=== PATIENT | female | born 1990 | race Caucasian/White ===

== ENCOUNTER 2020-06-04 20:09 | Emergency (ER) | payer SELFPAY | END 2020-06-04 21:05 | disposition left against medical advice (07) | LOC: ED 20:09 | DX: R10.9 Unspecified abdominal pain (principal); Z53.21 Procedure and treatment not carried out due to patient leaving prior to being seen by health care provider ==

== ENCOUNTER 2020-08-20 01:56 | Emergency (ER) | payer SELFPAY ==
[2020-08-20 05:36] VITALS: BP 121/69
[2020-08-20 05:44] LABS: Hematocrit 39.3 % (30.3-42.9); Mean Corpuscular HGB Conc 33 % (30-34); Mean Corpuscular Volume 83 fl (79-97); Platelet Count 185 K/mm3 (140-440); Red Blood Count 4.72 M/mm3 (3.65-5.03); Red Cell Distribution Width 14.7 % (13.2-15.2)
[2020-08-20 05:51] LABS: Bilirubin,Urine NEG (Negative); Blood,Urine SM (Negative); Color,Urine Yellow (Yellow); Mucus,Urine FEW /HPF; Protein,Urine <15 mg/dL mg/dL (Negative); Urobilinogen,Urine < 2.0 mg/dL (<2.0)
[2020-08-20 06:03] LABS: Alanine Aminotransferase 16 units/L (7-56); Albumin 4.2 g/dL (3.9-5); Blood Urea Nitrogen 5 mg/dL (7-17); Calcium 9.2 mg/dL (8.4-10.2); Hemolysis Index 1
[2020-08-20] MEDS ORDERED: SODIUM CHLORIDE 0.9% 1000 ML 1,000 ML IV ONE (06:06)
[2020-08-20] MEDS ORDERED: FLEET ENEMA PR ONE (06:06)
--- NOTE | 2020-08-20 06:09 | Emergency Department Report ---
HPI - General Chief Complaint: Abdominal Pain Time Seen by Provider: 08/20/20 05:54 - HPI HPI: 30-year-old G2, P1 female at 16 weeks gestation based on first trimester ultrasound presents complaining of 2 weeks of constipation. The patient states that for the past 2 weeks she has been unable to have a bowel movement. She feels as if she needs to go but every time she tries to go she sits on the toilet and strains without successful bowel movement. She has tried drinking prune juice without relief of her symptoms. She saw her MEDICARE INSURANCE SPECIALIST this past Danae rsday, 4 days ago and was supposed to be prescribed laxatives but it was never sent to the pharmacy. She reports that she has some rectal pain from straining but otherwise denies abdominal pain, nausea/vomiting, or any other symptoms. She denies fever/chills, headache, vision change, chest pain, shortness of breath, cough, dysuria, hematuria, vaginal bleeding, melena, hematochezia, or any other complaints. ED Past Medical Hx - Past Medical History Previous Medical History?: No - Surgical History Past Surgical History?: No - Medications Home Medications: Home Medications Medication Instructions Recorded Confirmed Last Taken Type Docusate Sodium [Colace] 100 mg PO BID PRN #14 capsule 08/20/20 Unknown Rx polyethylene glycoL 3350 [Miralax 17 gm PO QDAY 7 Days #7 packet 08/20/20 Unknown Rx 3350] ED Review of Systems ROS: Stated complaint: CONSTIPATION Other details as noted in HPI Constitutional: denies: chills, fever Eyes: denies: eye pain, vision change ENT: denies: throat pain, congestion Respiratory: denies: cough, shortness of breath Cardiovascular: denies: chest pain, palpitations Gastrointestinal: constipation. denies: abdominal pain, nausea, vomiting, diarrhea, melena, hematochezia Genitourinary: other (no vaginal bleeding). denies: dysuria, frequency, hematuria Musculoskeletal: denies: back pain, myalgia Skin: denies: rash Neurological: denies: headache, weakness, numbness Physical Exam - Physical Exam Vital Signs: Vital Signs 08/20/20 08/20/20 02:34 05:34 Temperature 98.1 F Pulse Rate 114 H 89 Respiratory 18 16 Rate Blood Pressure 111/80 Blood Pressure 121/69 [Left] O2 Sat by Pulse 99 100 Oximetry Physical Exam: GENERAL: Well developed and well nourished. No acute distress HEENT: Normocephalic. No obvious signs of trauma. Dry mucous membranes. EYES: Extraocular movements are intact. Pupils are equal round and reactive to light bilaterally NECK: Supple. Trachea is midline. LUNGS: Nonlabored breathing. Equal chest rise bilaterally. Clear to auscultation bilaterally. HEART/CARDIOVASCULAR: Regular rate and rhythm. No murmurs or rubs. VASCULAR: Cap refill < 2 seconds ABDOMEN: Abdomen is soft and nondistended. There is no significant tenderness, guarding or rebound. SKIN: Skin is warm and dry NEURO: Patient is awake, alert, and oriented. resourcing consultant II-XII grossly intact. No focal deficits. Normal motor and sensory exam throughout. Normal speech. MUSCULOSKELETAL: No obvious deformities. No significant tenderness. BACK/SPINE: No costovertebral angle tenderness. ED Course Vital Signs 08/20/20 08/20/20 02:34 05:34 Temperature 98.1 F Pulse Rate 114 H 89 Respiratory 18 16 Rate Blood Pressure 111/80 Blood Pressure 121/69 [Left] O2 Sat by Pulse 99 100 Oximetry ED Medical Decision Making - Lab Data Result diagrams: 08/20/20 05:28 08/20/20 05:28 Labs 08/20/20 08/20/20 08/20/20 05:28 05:28 05:28 WBC 13.2 H RBC 4.72 Hgb 13.0 Hct 39.3 MCV 83 MCH 28 MCHC 33 RDW 14.7 Plt Count 185 Sodium 135 L Potassium 3.8 Chloride 99.4 Carbon Dioxide 23 Anion Gap 16 BUN 5 L Creatinine 0.6 Estimated GFR > 60 BUN/Creatinine Ratio 8 Glucose 88 Calcium 9.2 Total Bilirubin 0.30 Direct Bilirubin < 0.2 Indirect Bilirubin 0.1 AST 14 ALT 16 Alkaline Phosphatase 59 Total Protein 7.1 Albumin 4.2 Albumin/Globulin Ratio 1.4 HCG, Quant 02493 H Urine Color Urine Turbidity Urine pH Ur Specific [place] Urine Protein Urine Glucose (UA) Urine Ketones Urine Blood Urine Nitrite Urine Bilirubin Urine Urobilinogen Ur Leukocyte Esterase Urine WBC (Auto) Urine RBC (Auto) U Epithel Cells (Auto) Urine Mucus 08/20/20 05:34 WBC RBC Hgb Hct MCV MCH MCHC RDW Plt Count Sodium Potassium Chloride Carbon Dioxide Anion Gap BUN Creatinine Estimated GFR BUN/Creatinine Ratio Glucose Calcium Total Bilirubin Direct Bilirubin Indirect Bilirubin AST ALT Alkaline Phosphatase Total Protein Albumin Albumin/Globulin Ratio HCG, Quant Urine Color Yellow Urine Turbidity Slightly-cloudy Urine pH 5.0 Ur Specific [place] 1.016 Urine Protein <15 mg/dl Urine Glucose (UA) Neg Urine Ketones 20 Urine Blood Sm Urine Nitrite Neg Urine Bilirubin Neg Urine Urobilinogen < 2.0 Ur Leukocyte Esterase Tr Urine WBC (Auto) 3.0 Urine RBC (Auto) 2.0 U Epithel Cells (Auto) 9.0 Urine Mucus Few - Radiology Data ULTRASOUND OBSTETRIC Indication: abd pain in preg Findings: There is a single intrauterine . BPD = 3.1 cm = 15 weeks, 5 day(s). Head circumference = 11.1 cm = 15 weeks, 3 day(s). Abdominal circumference = 10.1 cm = 16 weeks, 1 day(s). Femur length = 2.0 cm = 16 weeks, 0 day(s). Overall estimated sonographic age = 15 weeks, 6 day(s). heart rate is 140 beats per minute. Estimated weight is 140 grams position is cephalic. Cervix appears closed. movement is present. Placenta is left lateral and grade 0 . A small hypodensity is identified within the placenta which may represent a small placental george. Amniotic fluid volume appears normal. Maternal adnexa appear unremarkable aside from a 3.2 cm minimally complex left ovarian cyst. Impression: 1. Single living intrauterine with estimated sonographic age of 15 weeks, 6 day(s). 2. Small hypodensity within the placenta may repre sent a small placental george. Signer Name: Franki Desai MD Signed: 08/20/2020 5:46 AM Workstation Name: [id number] - Medical Decision Making 30-year-old female, G2, P1 at 16 weeks gestation based on first trimester ultrasound presents complaining of 2 weeks of constipation. Patient has been drinking prune juice without relief of her symptoms, but has not tried any other medications. Saw her OB 4 days ago and was supposed to be prescribed laxatives but prescription was never sent to the pharmacy. On initial assessment, the patient is in no acute distress. She is afebrile and with normal vital signs with the exception of mildly elevated heart rate in the 110s upon arrival. While I was in the room the patient's heart rate was in the 80s to 90s. On physical exam, she has dry mucous membranes. Abdomen is soft and nontender. There is no CVA tenderness. We will send a full set of labs, obtain an OB ultrasound, and we will plan to administer 1 L of IV fluids as well as an enema to facilitate bowel movement. Labs have resulted and reveal mild leukocytosis of 13.2. There is no significant anemia. There is no significant electrolyte abnormality and kidney function is normal. hCG quant is 31,000. Urinalysis is within normal limits. OB ultrasound is pending. ultrasound reveals normal 15-week 6-day intrauterine with heart rate of 140. Unremarkable other than 3.2 cm minimally complex left ovarian cyst. Repeat assessment at 8:10 AM, the patient is resting comfortably in the bed. She reports that she has had a bowel movement and does feel better but feels as if she has to go further. We discussed the results of the patient's labs and ultrasound. We will plan to discharge the patient home with prescription for Colace 100mg BID prn and Miralax 1 capful daily. The patient will follow up with her OBGYN in 2-3 days. Upon discharge, the patient's heart rate was in the 80s and the remainder of her vital signs were within normal limits. Critical care attestation.: If time is entered above; I have spent that time in minutes in the direct care of this critically ill patient, excluding procedure time. ED Disposition Clinical Impression: Constipation during , Left ovarian cyst Disposition: DC- TO HOME OR SELFCARE Is pt being admited?: No Condition: Stable Instructions: Care, Constipation, Adult, Abdominal Pain (ED) Additional Instructions: Please follow-up with your MEDICARE INSURANCE SPECIALIST in 2 to 3 days. Your ultrasound shows that you do have a 3.2 cm left ovarian cyst. Please follow-up with your MEDICARE INSURANCE SPECIALIST. Prescriptions: Docusate Sodium [Colace] 100 mg PO BID PRN #14 capsule PRN Reason: Constipation polyethylene glycoL 3350 [Miralax 3350] 17 gm PO QDAY 7 Days #7 packet Referrals: PRIMARY CARE, [Primary Care Provider] - 3-5 Days
[2020-08-20 06:22] LABS: BUN/Creatinine Ratio 8; Bilirubin,Direct < 0.2 mg/dL (0-0.2)
--- NOTE | 2020-08-20 06:50 | Ultrasound Report ---
ULTRASOUND OBSTETRIC Indication: abd pain in preg Findings: There is a single intrauterine . BPD = 3.1 cm = 15 weeks, 5 day(s). Head circumference = 11.1 cm = 15 weeks, 3 day(s). Abdominal circumference = 10.1 cm = 16 weeks, 1 day(s). Femur length = 2.0 cm = 16 weeks, 0 day(s). Overall estimated sonographic age = 15 weeks, 6 day(s). heart rate is 140 beats per minute. Estimated weight is 140 grams position is cephalic. Cervix appears closed. movement is present. Placenta is left lateral and grade 0 . A small hypodensity is identified within the placenta which m ay represent a small placental george. Amniotic fluid volume appears normal. Maternal adnexa appear unremarkable aside from a 3.2 cm minimally complex left ovarian cyst. Impression: 1. Single living intrauterine with estimated sonographic age of 15 weeks, 6 day(s). 2. Small hypodensity within the placenta may represent a small placental george. Signer Name: Franki Desai MD Signed: 08/20/2020 6:46 AM Workstation Name: [id number]
== END 2020-08-20 09:00 | disposition home or self-care (01) ==
LOC: ED 01:56
DX: O26.892 Other specified pregnancy related conditions, second trimester (principal); K59.00 Constipation, unspecified; N83.202 Unspecified ovarian cyst, left side; Z79.899 Other long term (current) drug therapy
CPT/HCPCS: 36415; 76805; 80048; 80076; 81001; 84702; 85027; 96360; 99284; J7030